=== PATIENT | female | born 1950 | race Caucasian/White ===

== ENCOUNTER 2017-02-07 18:39 | Emergency (ER) | payer MEDICAID, BC ==
[~2017-02-07] VITALS: Ht 160 cm; Wt 54.4 kg
[~2017-02-07 18:39] MED LIST: AMPH20TA3 PO
[2017-02-07] MEDS ORDERED: OXYC1TAB PO (18:58)
--- NOTE | 2017-02-07 19:00 | NUR ---
DR GONZALES INTO EVAL PATIENT
--- NOTE | 2017-02-07 19:08 | NUR ---
CUT CAST ON LEFT LOWER LEG ORDERED
--- NOTE | 2017-02-07 21:33 | NUR ---
Patient discharged to home in stable conditon STAFF NURSE ASSIST PATIENT TO PRIVATE VEHICLE VIA WHEELCHAIR. Written and verbal after care instructions given. Patient verbalizes understanding of instructions.
[2017-02-07 21:34] VITALS: BP 100/66
== END 2017-02-07 21:34 | disposition home or self-care (01) ==
LOC: ER 18:43
DX: S92.902A Unspecified fracture of left foot, initial encounter for closed fracture (principal); E78.5 Hyperlipidemia, unspecified; W18.30XA Fall on same level, unspecified, initial encounter; Y93.89 Activity, other specified; Y99.8 Other external cause status; Y92.89 Other specified places as the place of occurrence of the external cause
CPT/HCPCS: A4663

== ENCOUNTER 2017-11-05 16:01 | Emergency (ER) | payer MEDICARE, MEDICAID ==
[~2017-11-05] VITALS: Ht 160 cm; Wt 55.3 kg
[~2017-11-05 16:01] MED LIST changes: +OXYC1TAB PO
[2017-11-05] MEDS ORDERED: ASPI-605 PO (16:13)
[2017-11-05 16:33] LABS: *BILIRUBIN,URIN NEGATIVE (NEGATIVE); *BLOOD, URINE NEGATIVE (NEGATIVE); *COLOR,URINE YELLOW (YELLOW); *KETONES,URINE NEGATIVE (NEGATIVE); *PROTEIN,URINE NEGATIVE (NEGATIVE); *UROBILINOGEN,URINE 0.2 E.U./dl (NORMAL); LEUKOCYTE ESTERASE ,URINE NEGATIVE (NEGATIVE); NITRITE, URINE NEGATIVE (NEGATIVE); UGLUCOSE NEGATIVE (NEGATIVE)
[2017-11-05 16:50] LABS: *CLARITY,URINE SLIGHTLY HAZY (CLEAR)
[2017-11-05 16:51] LABS: MUCUS,URINE FEW /LPF (0-FEW); RBC,URINE 0-3 /HPF (0-3); SQUAMOUS EPITHELIAL CELL,UR FEW /HPF (NONE SEEN); URINE AMORPHOUS PHOSPHATES MODERATE /HPF; WBC,URINE 0-3 /HPF (0-3)
[2017-11-05 16:51] LABS: BASOPHILS % (AUTO) 0.6 % (0.0-2.0); EOSINOPHILS # (AUTO) 0.1 K/uL (0.0-0.7); EOSINOPHILS % (AUTO) 2.6 % (0.0-7.0); HEMATOCRIT 38.5 % (31.2-41.9); LYMPHOCYTES # (AUTO) 1.7 K/uL (20.0-40.0); LYMPHOCYTES % (AUTO) 29.4 % (20.5-51.5); MEAN CORPUSCULAR HEMOGLOBIN 29.9 uug (24.7-32.8); MEAN CORPUSCULAR HGB CONC 34 g/dL (32.3-35.6); MEAN CORPUSCULAR VOLUME 88.3 fL (75.5-95.3); MONOCYTES # (AUTO) 0.5 K/uL (2.0-10.0); MONOCYTES % (AUTO) 9.8 % (0.0-11.0); NEUTROPHILS # (AUTO) 3.2 K/uL (1.8-8.9); NEUTROPHILS % (AUTO) 57.6 % (38.5-71.5); PLATELET COUNT (AUTO) 238 K/uL (179-408); RED BLOOD CELL COUNT(AUTO) 4.36 MIL/uL (3.63-4.92); WHITE BLOOD COUNT (AUTO) 5.6 K/uL (3.8-11.8)
[2017-11-05 16:59] LABS: POTASSIUM 3.9 mmol/L (3.5-5.1)
--- NOTE | 2017-11-05 17:00 | NUR ---
Patient is resting comfortably on gurney with eyes closed, NAD.
[2017-11-05 17:05] LABS: BILIRUBIN,DIRECT 0.1 mg/dL (0.0-0.2); BILIRUBIN,TOTAL 0.3 mg/dL (0.2-1.0)
--- NOTE | 2017-11-05 17:25 | NUR ---
Repeated explanations were provided by our ER MD & by our staff regarding her tests results.
--- NOTE | 2017-11-05 17:30 | NUR ---
Patient discharged to home in stable conditon. Written and verbal after care instructions given to patient. Patient verbalizes understanding of instructions. Copies of blood & urine tests results were given to the patient per patient's request.
== END 2017-11-05 17:36 | disposition home or self-care (01) ==
LOC: ER 16:03
DX: R10.9 Unspecified abdominal pain (principal); E78.5 Hyperlipidemia, unspecified; Z79.82 Long term (current) use of aspirin; Z79.891 Long term (current) use of opiate analgesic; Z79.899 Other long term (current) drug therapy
CPT/HCPCS: 36415; 83690; 85025; A4663